=== PATIENT | female | born 1980 | race African-American/Black ===

== ENCOUNTER 2016-11-13 01:32 | Emergency (ER) | payer BC ==
[~2016-11-13] VITALS: Ht 165.1 cm; Wt 83.9 kg
[2016-11-13 02:21] VITALS: BP 137/77
[2016-11-13 02:30] LABS: BILIRUBIN,URINE NEGATIVE (NEG); GLUCOSE,URINE NEGATIVE (NEG); NITRITE,URINE NEGATIVE (NEG); PROTEIN,URINE NEGATIVE (NEG-TRACE); UROBILINOGEN,URINE 0.2 mg/dL (0.2 mg/dL)
[2016-11-13 02:34] LABS: BACTERIA,URINE MANY /HPF (0-FEW); RBC,URINE OCC /HPF (0-2); SQUAMOUS EPITHELIAL CELL,UR MANY /LPF
[2016-11-13] MEDS ORDERED: PHEN-318 PO (02:55)
[2016-11-13] MEDS ORDERED: NITR100C62 PO (02:55)
--- NOTE | 2016-11-13 02:55 | PHYS DOC ---
Past Medical History Past Medical History: Other Additional Past Medical Histor: GRAVES, LYNDA'S Past Surgical History: Tubal ligation, Other Additional Past Surgical Histo: radiation to thyroid Smoking: Cigarettes Alcohol Use: Rarely Drug Use: Marijuana Adult General Chief Complaint Chief Complaint: MULTIPLE COMPLAINTS HPI HPI Patient is a 36 year old female who presents with vaginal pain and pressure with urination. She feels like "something is falling out". Last menstrual period 2 weeks ago. Her last child was 15 years ago. She had noticed increasing difficulty with urination. No fever, no vomiting. Review of Systems Review of Systems Constitutional: Denies fever or chills Eyes: Denies change in visual acuity, redness, or eye pain HENT: Denies nasal congestion or sore throat Respiratory: Denies cough or shortness of breath Cardiovascular: No chest pain GI: Denies abdominal pain, nausea, vomiting, bloody stools or diarrhea : POS dysuria; no hematuria Musculoskeletal: Denies back pain or joint pain Integument: Denies rash or skin lesions Neurologic: chronic headache, focal weakness or sensory changes Allergies Allergies Allergies Coded Allergies Type Severity Reaction Last Updated Verified No Known Drug Allergies 04/23/13 No Physical Exam Physical Exam Constitutional: Well developed, well nourished, no acute distress, non-toxic appearance. HENT: Normocephalic, atraumatic, bilateral external ears normal, oropharynx moist, no oral exudates, nose normal. Eyes: PERRLA, EOMI, conjunctiva normal, no discharge. Neck: Normal range of motion, no tenderness, supple, no stridor. Cardiovascular:Heart rate regular rhythm, no murmur Lungs & Thorax: Bilateral breath sounds clear to auscultation Abdomen: Bowel sounds normal, soft, no tenderness, no masses, no pulsatile masses. Exam: Food Service Director present. No prolapse noted. Vaginal exam unremarkable. No external lesions noted. Skin: Warm, dry, no erythema, no rash. Back: No tenderness, no CVA tenderness. Extremities: No tenderness, no cyanosis, no clubbing, ROM intact, no edema. Neurologic: Alert and oriented X 3, normal motor function, normal sensory function, no focal deficits noted. Current Patient Data Vital Signs Vital Signs Date Time Temp Pulse Resp B/P (MAP) Pulse Ox O2 Delivery O2 Flow Rate FiO2 11/13/16 02:21 98.9 83 18 137/77 (97) 98 Room Air 98.9 Lab Values Laboratory Tests Test 11/13/16 01:28 11/13/16 02:10 POC Urine HCG, Qualitative Hcg negative (Negative) Urine Collection Type Unknown Urine Color Yellow Urine Clarity Cloudy Urine pH 6.0 Urine Specific [place] 1.025 Urine Protein Negative mg/dL (NEG-TRACE) Urine Glucose (UA) Negative mg/dL (NEG) Urine Ketones (Stick) Negative mg/dL (NEG) Urine Blood Small (NEG) Urine Nitrite Negative (NEG) Urine Bilirubin Negative (NEG) Urine Urobilinogen Dipstick 0.2 mg/dL (0.2 mg/dL) Urine Leukocyte Esterase Large (NEG) Urine RBC Occ /HPF (0-2) Urine WBC 11-20 /HPF (0-4) Urine Squamous Epithelial Cells Many /LPF Urine Bacteria Many /HPF (0-FEW) Urine Mucus Mod /LPF Course & Med Decision Making Course & Med Decision Making Evaluated patient. Urinalysis was sent. Urine test is negative. Her urine is positive and discussed with patient that she may be developing stress urinary incontinence and pelvic floor laxity. She will follow-up with the private physician for referral to [facility]. She was dosed here with Macrobid and Pyridium. I have spoken with the patient and/or caregivers. I have explained the patient' s condition, diagnosis and treatment plan based on the information available to me at this time. I have answered the patient's and/or caregiver's questions and addressed any concerns. The patient and/or caregivers have as good an understanding of the patient's diagnosis, condition and treatment plan as can be expected at this point. The patient's condition is stable and appropriate for discharge from the emergency department. The patient will pursue further outpatient evaluation with the primary care physician or other designated or consulting physician as outlined in the discharge instructions. The patient and/or caregivers are agreeable to this plan of care and follow-up instructions have been explained in detail. The patient and/or caregivers have received these instructions in written format and have expressed an understanding of the discharge instructions. The patient and/or caregivers are aware that any significant change in condition or worsening of symptoms should prompt an immediate return to this or the closest emergency department or a call to 911. [place] Disclaimer Dragon Disclaimer This electronic medical record was generated, in whole or in part, using a voice recognition dictation system. Departure Departure Impression: Primary Impression: Urinary tract infection Additional Impression: SOFIE (stress urinary incontinence, female) Disposition: HOME, SELF-CARE Condition: STABLE Referrals: GENEVIEVE JOE MD (PCP) Patient Instructions: Urinary Tract Infection Scripts Phenazopyridine Hcl (PYRIDIUM) 200 Mg Tablet 200 MG PO TID, #10 TAB Prov: JOURDAN BONILLA MD 11/13/16 Nitrofurantoin Monohyd/M-Cryst (MACROBID 100 MG CAPSULE) 100 Mg Capsule 1 CAP PO BID, #14 CAP Prov: JOURDAN BONILLA MD 11/13/16 Problem Qualifiers Primary Impression: Urinary tract infection Urinary tract infection type: acute cystitis Hematuria presence: without hematuria Qualified Codes: N30.00 - Acute cystitis without hematuria JOURDAN BONILLA MD Nov 13, 2016 02:55
[2016-11-13] MEDS ORDERED: NITROFURANTOIN MONOHYD/M-CRYST 100 MG CAPSULE. PO ONE ×2 (03:01→03:15)
[2016-11-13] MEDS ORDERED: PHENAZOPYRIDINE 200 MG TABLET. ONE (03:01)
[2016-11-13] MEDS ORDERED: PHENAZOPYRIDINE 200 MG TABLET. PO ONE (03:15)
== END 2016-11-13 03:10 | disposition home or self-care (01) ==
LOC: ER 02:11
DX: N30.00 Acute cystitis without hematuria (principal); N39.3 Stress incontinence (female) (male); Z98.51 Tubal ligation status; F17.210 Nicotine dependence, cigarettes, uncomplicated
CPT/HCPCS: 81001; 81025; 87086; 99284

== ENCOUNTER 2017-05-14 05:06 | Emergency (ER) | payer BC ==
[2017-05-14 05:34] LABS: URINE HCG POC HCG NEGATIVE (Negative)
[2017-05-14] MEDS: NAPROXEN 500 MG TABLET PO (06:46)
== END 2017-05-14 06:50 | disposition home or self-care (01) ==
LOC: ER 05:06
DX: M54.5 Low back pain (principal); Z98.51 Tubal ligation status; W01.0XXA Fall on same level from slipping, tripping and stumbling without subsequent striking against object, initial encounter; Y93.89 Activity, other specified; Y92.090 Kitchen in other non-institutional residence as the place of occurrence of the external cause; Y99.8 Other external cause status
CPT/HCPCS: 81025; 99283

== ENCOUNTER 2017-08-11 21:36 | Emergency (ER) | payer BC ==
[2017-08-11 22:44] LABS: ADD MAN DIFF? NO
[2017-08-11 22:47] LABS: BASO # 0.1 x10^3/uL (0.0-0.2); BASO % 1 % (0-3); EOS # 0.2 x10^3/uL (0.0-0.7); EOS % 2 % (0-3); HEMATOCRIT 36.1 % (36.0-47.0); HEMOGLOBIN 12.2 g/dL (12.0-15.5); LYMPH # 3.3 x10^3/uL (1.0-4.8); LYMPH % 42 % (24-48); MEAN CORPUSCULAR HEMOGLOBIN 31 pg (25-35); MEAN CORPUSCULAR HGB CONC 34 g/dL (31-37); MEAN CORPUSCULAR VOLUME 91 fL (79-100); MONO # 0.3 x10^3/uL (0.0-1.1); MONO % 4 % (0-9); NEUT # 4.1 x10^3uL (1.8-7.7); NEUT % 52 % (31-73); PLATELET COUNT 211 x10^3/uL (140-400); RED BLOOD COUNT 3.96 x10^6/uL (3.50-5.40); RED CELL DISTRIBUTION WIDTH 13.8 % (11.5-14.5); WHITE BLOOD COUNT 7.9 x10^3/uL (4.0-11.0)
[2017-08-11 22:54] LABS: BILIRUBIN,URINE NEGATIVE (NEG); CLARITY,URINE CLEAR; COLOR,URINE YELLOW; GLUCOSE,URINE NEGATIVE (NEG); NITRITE,URINE NEGATIVE (NEG); PH,URINE 7.5; PROTEIN,URINE NEGATIVE (NEG-TRACE)
[2017-08-11] MEDS: METOCLOPRAMIDE HCL 10 MG/2 ML VIAL. IV (22:54)
[2017-08-11] MEDS: diphenhydrAMINE 50 MG/ML VIAL IVP (22:55)
[2017-08-11] MEDS: MORPHINE SULFATE 4 MG/ML DISP.SYRIN. IV (22:55)
[2017-08-11] MEDS: IV NORMAL SALINE 1000ML BAG 1,000 ML IV (22:55)
[2017-08-11 23:04] LABS: ANION GAP 8 (6-14); BACTERIA,URINE MANY /HPF (0-FEW); BLOOD UREA NITROGEN 15 mg/dL (7-20); BUN/CREATININE RATIO 11 (6-20); CALCIUM 8.3 mg/dL (8.5-10.1); CARBON DIOXIDE 29 mmol/L (21-32); CHLORIDE 103 mmol/L (98-107); CREATININE 1.4 mg/dL (0.6-1.0); GFR 50.9; GLUCOSE 88 mg/dL (70-99); POTASSIUM 3.6 mmol/L (3.5-5.1); RBC,URINE 0 /HPF (0-2); SODIUM 140 mmol/L (136-145); SQUAMOUS EPITHELIAL CELL,UR MANY /LPF
[2017-08-11 23:10] LABS: ALBUMIN 3.3 g/dL (3.4-5.0); ALK PHOS 64 U/L (46-116); ALT (SGPT) 22 U/L (14-59); AST (SGOT) 19 U/L (15-37); TOTAL BILIRUBIN 0.2 mg/dL (0.2-1.0); TOTAL PROTEIN 6.6 g/dL (6.4-8.2)
[2017-08-11 23:16] LABS: NEG OBC UR NEG; POS OBC UR POS; U PREG PATIENT NEGATIVE (NEG)
[2017-08-11 23:58] LABS: SEDIMENTATION RATE 12 (0-25)
== END 2017-08-12 00:55 | disposition home or self-care (01) ==
LOC: ER 08-12 00:55
DX: R51 Headache (principal); H53.8 Other visual disturbances; E05.90 Thyrotoxicosis, unspecified without thyrotoxic crisis or storm
CPT/HCPCS: 36415; 70450; 80053; 81001; 81025; 85025; 85651; 96374; 96375; 99285-25; J1200; J2270; J2765; J7030

== ENCOUNTER 2018-04-22 00:50 | Emergency (ER) | payer BC ==
[~2018-04-22] VITALS: Ht 152.4 cm; Wt 81.6 kg
[~2018-04-22 00:50] MED LIST: CYCL10TA2 PO; NAPR-683 PO; NITR100C62 PO; PHEN-318 PO
[2018-04-22 01:03] VITALS: BP 129/72
[2018-04-22] MEDS ORDERED: MELO7.5T29 PO (01:37)
[2018-04-22] MEDS ORDERED: ORPH100T PO (01:37)
--- NOTE | 2018-04-22 01:37 | PHYS DOC ---
Past Medical History Past Medical History: Hypothyroid, Kidney Infection, Other Additional Past Medical Histor: GRAVES, LYNDA'S Past Surgical History: Tubal ligation, Other Additional Past Surgical Histo: radiation to thyroid, thyroidectomy Alcohol Use: Occasionally Drug Use: None Adult General Chief Complaint Chief Complaint: MECHANICAL FALL HPI HPI Patient is a 37 year old female who presents with neck and head pain after a slip and fall on the ice at approximately 3:00 on Sunday afternoon. Patient was wearing high heels while walking to one of her daughters singing performances and slipped falling backwards striking her head. No loss of consciousness. No loss of bowel or bladder control. No paresthesias. No nausea or vomiting. She reports increased pain with movement especially of her left arm and in the left side of her neck. She has taken no medicine for pain. She has a mild headache.[] Review of Systems Review of Systems Constitutional: Denies fever or chills [] Eyes: Denies change in visual acuity, redness, or eye pain [] HENT: Denies nasal congestion or sore throat [] Respiratory: Denies cough or shortness of breath [] Cardiovascular: No chest pain or palpitations[] GI: Denies abdominal pain, nausea, vomiting, bloody stools or diarrhea [] : Denies dysuria or hematuria [] Musculoskeletal: Denies back pain or joint pain [] Integument: Denies rash or skin lesions [] Neurologic: Denies focal weakness or sensory changes [] Endocrine: Denies polyuria or polydipsia [] All other systems were reviewed and found to be within normal limits, except as documented in this note. Allergies Allergies Allergies Coded Allergies Type Severity Reaction Last Updated Verified No Known Drug Allergies 04/23/13 No Physical Exam Physical Exam Constitutional: Well developed, well nourished, no acute distress, non-toxic appearance. [] HENT: Normocephalic, atraumatic, palpation of the skull does not reveal any significant hematoma, no step-off, no crepitus. Bilateral external ears normal, TMs are clear, no blood no fluid, oropharynx moist, no oral exudates, nose normal. [] Eyes: PERRLA, EOMI, conjunctiva normal, no discharge. [] Neck: Normal range of motion, no midline tenderness, tenderness in the paraspinal musculature on the left side, full active range of motion, supple, no stridor. [] Cardiovascular:Heart rate regular rhythm, no murmur [] Lungs & Thorax: Bilateral breath sounds clear to auscultation [] Abdomen: Bowel sounds normal, soft, no tenderness, no masses, no pulsatile masses. [] Skin: Warm, dry, no erythema, no rash. [] Back: No tenderness, no CVA tenderness. [] Extremities: No tenderness, no cyanosis, no clubbing, ROM intact, no edema. Full active range of motion of bilateral shoulders, normal rapid repetitive and alternating movements, patient is distal neurovascularly intact.[] Neurologic: Alert and oriented X 3, normal motor function, normal sensory function, no focal deficits noted. [] Psychologic: Affect normal, judgement normal, mood normal. [] Current Patient Data Vital Signs Vital Signs Date Time Temp Pulse Resp B/P (MAP) Pulse Ox O2 Delivery O2 Flow Rate FiO2 04/22/18 01:03 98.1 87 20 129/72 (91) 99 Room Air 98.1 EKG EKG [] Radiology/Procedures Radiology/Procedures [] Course & Med Decision Making Course & Med Decision Making Pertinent Labs and Imaging studies reviewed. (See chart for details) Medical decision making: Patient does not have any significant bony tenderness to palpation of the cervical or thoracic spine. No step off of the skull, nor crepitus of the skull. Patient does not meet any criteria for needing a head CT at this time such as a prolonged loss of consciousness, unequal pupils, persistent nausea or vomiting. Believe this to be more of a closed head injury and neck strain mechanism and will treat accordingly. There is no evidence of any neurologic or vascular compromise.[] Dragon Disclaimer Dragon Disclaimer This electronic medical record was generated, in whole or in part, using a voice recognition dictation system. Departure Departure Impression: Primary Impression: Minor closed head injury Additional Impression: Cervical strain, acute Disposition: 01 HOME, SELF-CARE Condition: IMPROVED Referrals: GENEVIEVE JOE MD (PCP) Follow-up in 2 days Patient Instructions: Cervical Strain and Sprain with Rehab-SportsMed, Head Injury, Adult Additional Instructions: Follow-up with your regular doctor in 2 days. Take the medication as prescribed. Return to the ER if worsening discomfort or any other concerns. Scripts Orphenadrine Citrate (ORPHENADRINE CITRATE) 100 Mg Tablet.er 100 MG PO BID, #20 TAB.SR Prov: MANDI JACOB DO 04/22/18 Meloxicam (MELOXICAM) 7.5 Mg Tablet 7.5 MG PO DAILY, #20 TAB Prov: MANDI JACOB DO 04/22/18 Problem Qualifiers Additional Impression: Cervical strain, acute Encounter type: initial encounter Qualified Codes: S16.1XXA - Strain of muscle, fascia and tendon at neck level, initial encounter MANDI JACOB DO Apr 22, 2018 01:37
== END 2018-04-22 01:37 | disposition home or self-care (01) ==
LOC: ER 00:50
DX: S16.1XXA Strain of muscle, fascia and tendon at neck level, initial encounter (principal); S09.8XXA Other specified injuries of head, initial encounter; E89.0 Postprocedural hypothyroidism; Z98.51 Tubal ligation status; W00.0XXA Fall on same level due to ice and snow, initial encounter; Y93.01 Activity, walking, marching and hiking; Y92.89 Other specified places as the place of occurrence of the external cause; Y99.8 Other external cause status
CPT/HCPCS: 99283

== ENCOUNTER → 2018-05-02 | Outpatient (CLI) | payer BC ==
[2018-04-22 01:03] VITALS: BP 129/72
[~2018-05-02] MED LIST changes: +MELO7.5T29 PO; +ORPH100T PO
--- NOTE | 2018-05-02 12:30 | RAD ---
PQRS Compliance statement: One or more of the following individualized dose reduction techniques were utilized for this examination: 1. Automated exposure control. 2. Adjustment of the mA and/or kV according to patient size. 3. Use of iterative reconstruction technique. Indication:HEAD INJURY FALL 2 WEEKS AGO HIT BACK OF HEAD PREV SENT TECHNIQUE: CT head without IV contrast COMPARISON:08/11/2017 FINDINGS: No pathologic extra-axial or intra-axial fluid collection. The ventricles and basal cisterns are within normal limits. No acute intracranial bleed. No focal loss of owen-white differentiation. Visualized orbits within normal limits. No large scalp hematoma. No acute calvarial fracture. Visualized paranasal sinuses and mastoid air cells are clear. IMPRESSION: No acute intracranial process. Electronically signed by: Remy Gray DO (05/02/2018 12:27 PM) [id number]
== END | disposition home or self-care (01) ==
LOC: CT 11:03
PROVIDERS: ATTEND Family Medicine
DX: S06.0X9A Concussion with loss of consciousness of unspecified duration, initial encounter (principal); W00.9XXA Unspecified fall due to ice and snow, initial encounter; Y93.89 Activity, other specified; Y92.89 Other specified places as the place of occurrence of the external cause; Y99.8 Other external cause status
CPT/HCPCS: 70450

== ENCOUNTER 2018-07-20 06:59 | Emergency (ER) | payer BC ==
[~2018-07-20] VITALS: Ht 152.4 cm; Wt 83.9 kg
[2018-07-20] MEDS ORDERED: KETOROLAC 30 MG/ML VIAL. IV ONE (08:00)
[2018-07-20] MEDS ORDERED: methylPREDNISolone SOD SUCC PF 125 MG/2 ML VIAL. IV ONE (08:00)
[2018-07-20] MEDS ORDERED: IV NORMAL SALINE 1000ML BAG 1,000 ML IV SCH (08:00)
[2018-07-20] MEDS ORDERED: ONDANSETRON PF 4 MG/2 ML VIAL. IV ONE (08:00)
[2018-07-20] MEDS ORDERED: IPRATRPIUM/ALBUTEROL 0.5/2.5MG 3 ML NEBU. NEB ONE (08:00)
[2018-07-20 08:28] LABS: BASO % 0 % (0-3); EOS # 0.3 x10^3/uL (0.0-0.7); EOS % 3 % (0-3); HEMATOCRIT 38.8 % (36.0-47.0); HEMOGLOBIN 12.7 g/dL (12.0-15.5); LYMPH # 2.1 x10^3/uL (1.0-4.8); LYMPH % 23 % (24-48); MEAN CORPUSCULAR HEMOGLOBIN 29 pg (25-35); MEAN CORPUSCULAR HGB CONC 33 g/dL (31-37); MEAN CORPUSCULAR VOLUME 88 fL (79-100); MONO # 0.4 x10^3/uL (0.0-1.1); MONO % 5 % (0-9); NEUT # 6.2 x10^3uL (1.8-7.7); NEUT % 69 % (31-73); PLATELET COUNT 235 x10^3/uL (140-400); RED BLOOD COUNT 4.43 x10^6/uL (3.50-5.40); RED CELL DISTRIBUTION WIDTH 13.8 % (11.5-14.5); WHITE BLOOD COUNT 9.1 x10^3/uL (4.0-11.0)
[2018-07-20 08:36] LABS: CALCIUM 9.1 mg/dL (8.5-10.1); GFR 74.7; POTASSIUM 3.2 mmol/L (3.5-5.1)
[2018-07-20 08:41] LABS: ALBUMIN 3.4 g/dL (3.4-5.0); ALBUMIN/GLOBULIN RATIO 0.8 (1.0-1.7); TOTAL BILIRUBIN 0.2 mg/dL (0.2-1.0); TOTAL PROTEIN 7.5 g/dL (6.4-8.2)
--- NOTE | 2018-07-20 08:46 | RAD ---
PA and lateral chest radiographs 07/20/2018 Clinical History: Shortness of breath, cough and congestion for 3 days.. PA and lateral digital radiographs of the chest were obtained. No previous studies are available for comparison. The cardiac and mediastinal silhouettes are within normal limits in size and configuration. No pulmonary infiltrate is seen. No pleural effusion or pneumothorax is noted. The osseous structures are grossly intact. Impression: No radiographic evidence of active cardiopulmonary disease. Electronically signed by: Jakob Madison MD (07/20/2018 8:43 AM) [facility]
[2018-07-20] MEDS ORDERED: ALBU2.5V8 INH (10:01)
[2018-07-20] MEDS ORDERED: HYDR115S2 PO (10:01)
[2018-07-20] MEDS ORDERED: METH4TAB2 PO (10:01)
--- NOTE | 2018-07-20 10:02 | PHYS DOC ---
Past Medical History Past Medical History: Hypothyroid, Kidney Infection, Other Additional Past Medical Histor: GRAVES, LYNDA'S Past Surgical History: Tubal ligation, Other Additional Past Surgical Histo: radiation to thyroid, thyroidectomy Alcohol Use: Occasionally Drug Use: None Adult General Chief Complaint Chief Complaint: Congestion HPI HPI Patient is a 37 year old female who presents with thinning of cough and congestion. Patient complaining of episodes of productive cough with yellow sputum and nasal congestion and shortness of breath for the last 3 days and states she had not able to breathe because of plugging her throat. Patient states she was seen at another hospital 2 days ago with nausea and vomiting that resolved but her cough and congestion is not getting better. Review of Systems Review of Systems Constitutional: Reports subjective fever and chills Eyes: Denies change in visual acuity, redness, or eye pain [] HENT: Reports nasal congestion and sore throat Respiratory: Reports cough and shortness of breath is Cardiovascular: No additional information not addressed in HPI [] GI: Denies abdominal pain, nausea, vomiting, bloody stools or diarrhea [] : Denies dysuria or hematuria [] Musculoskeletal: Denies back pain or joint pain [] Integument: Denies rash or skin lesions [] Neurologic: Denies headache, focal weakness or sensory changes [] Endocrine: Denies polyuria or polydipsia [] All other systems were reviewed and found to be within normal limits, except as documented in this note. Current Medications Current Medications Current Medications Medications (Trade) Dose Ordered Sig/Sue Start Time Stop Time Status Last Admin Dose Admin Albuterol/ Ipratropium (Duoneb) 3 ml 1X ONCE 07/20/18 08:00 07/20/18 08:01 DC 07/20/18 07:46 3 ML Ketorolac Tromethamine (Toradol 30mg Vial) 30 mg 1X ONCE 07/20/18 08:00 07/20/18 08:01 DC 07/20/18 08:14 30 MG Methylprednisolone Sodium Succinate (SOLU-Medrol 125MG VIAL) 125 mg 1X ONCE 07/20/18 08:00 07/20/18 08:01 DC 07/20/18 08:11 125 MG Ondansetron HCl (Zofran) 4 mg 1X ONCE 07/20/18 08:00 07/20/18 08:01 DC 07/20/18 08:14 4 MG Potassium Chloride (Klor-Con) 40 meq 1X ONCE 07/20/18 10:30 07/20/18 10:30 DC 07/20/18 10:20 40 MEQ Sodium Chloride 1,000 ml @ 1,000 mls/hr Q1H 07/20/18 08:00 07/20/18 08:59 DC 07/20/18 08:10 1,000 MLS/HR Allergies Allergies Allergies Coded Allergies Type Severity Reaction Last Updated Verified No Known Drug Allergies 04/23/13 No Physical Exam Physical Exam Constitutional: Well developed, well nourished, mild distress, non-toxic appearance. [] HENT: Normocephalic, atraumatic, bilateral external ears normal, oropharynx moist, no oral exudates, nose normal. [] Eyes: PERRLA, EOMI, conjunctiva normal, no discharge. [] Neck: Normal range of motion, no tenderness, supple, no stridor. [] Cardiovascular:Heart rate regular rhythm, no murmur [] Lungs & Thorax: Bilateral breath sounds clear to auscultation [] Abdomen: Bowel sounds normal, soft, no tenderness, no masses, no pulsatile masses. [] Skin: Warm, dry, no erythema, no rash. [] Back: No tenderness, no CVA tenderness. [] Extremities: No tenderness, no cyanosis, no clubbing, ROM intact, no edema. [] Neurologic: Alert and oriented X 3, normal motor function, normal sensory function, no focal deficits noted. [] Psychologic: Affect anxious, judgement normal, mood normal. [] Current Patient Data Vital Signs Vital Signs Date Time Temp Pulse Resp B/P (MAP) Pulse Ox O2 Delivery O2 Flow Rate FiO2 07/20/18 10:21 66 112/55 (74) 99 Room Air 07/20/18 07:25 98.5 20 98.5 Lab Values Laboratory Tests Test 07/20/18 08:00 White Blood Count 9.1 x10^3/uL (4.0-11.0) Red Blood Count 4.43 x10^6/uL (3.50-5.40) Hemoglobin 12.7 g/dL (12.0-15.5) Hematocrit 38.8 % (36.0-47.0) Mean Corpuscular Volume 88 fL (79-100) Mean Corpuscular Hemoglobin 29 pg (25-35) Mean Corpuscular Hemoglobin Concent 33 g/dL (31-37) Red Cell Distribution Width 13.8 % (11.5-14.5) Platelet Count 235 x10^3/uL (140-400) Neutrophils (%) (Auto) 69 % (31-73) Lymphocytes (%) (Auto) 23 % (24-48) L Monocytes (%) (Auto) 5 % (0-9) Eosinophils (%) (Auto) 3 % (0-3) Basophils (%) (Auto) 0 % (0-3) Neutrophils # (Auto) 6.2 x10^3uL (1.8-7.7) Lymphocytes # (Auto) 2.1 x10^3/uL (1.0-4.8) Monocytes # (Auto) 0.4 x10^3/uL (0.0-1.1) Eosinophils # (Auto) 0.3 x10^3/uL (0.0-0.7) Basophils # (Auto) 0.0 x10^3/uL (0.0-0.2) Sodium Level 140 mmol/L (136-145) Potassium Level 3.2 mmol/L (3.5-5.1) L Chloride Level 103 mmol/L (98-107) Carbon Dioxide Level 25 mmol/L (21-32) Anion Gap 12 (6-14) Blood Urea Nitrogen 10 mg/dL (7-20) Creatinine 1.0 mg/dL (0.6-1.0) Estimated GFR (Cockcroft-Gault) 74.7 BUN/Creatinine Ratio 10 (6-20) Glucose Level 122 mg/dL (70-99) H Lactic Acid Level 1.3 mmol/L (0.4-2.0) Calcium Level 9.1 mg/dL (8.5-10.1) Total Bilirubin 0.2 mg/dL (0.2-1.0) Aspartate Amino Transferase (AST) 14 U/L (15-37) L Alanine Aminotransferase (ALT) 18 U/L (14-59) Alkaline Phosphatase 62 U/L (46-116) Total Protein 7.5 g/dL (6.4-8.2) Albumin 3.4 g/dL (3.4-5.0) Albumin/Globulin Ratio 0.8 (1.0-1.7) L Laboratory Tests 07/20/18 08:00 Laboratory Tests 07/20/18 08:00 EKG EKG [] Radiology/Procedures Radiology/Procedures [facility] [address] [place] [address] IMAGING REPORT Signed PATIENT: BABAR CAVAZOS ACCOUNT: [id number] : 1980 LOCATION: ER AGE: 37 SEX: F EXAM STATUS: REG ER ORD. PHYSICIAN: ADA SOSA MD REASON: SOB, COUGH, CONGESTION X 3 DAYS PROCEDURE: CHEST PA & LATERAL PA and lateral chest radiographs 07/20/2018 Clinical History: Shortness of breath, cough and congestion for 3 days.. PA and lateral digital radiographs of the chest were obtained. No previous studies are available for comparison. The cardiac and mediastinal silhouettes are within normal limits in size and configuration. No pulmonary infiltrate is seen. No pleural effusion or pneumothorax is noted. The osseous structures are grossly intact. Impression: No radiographic evidence of active cardiopulmonary disease. Electronically signed by: Jakob Madison MD (07/20/2018 8:43 AM) [facility] DICTATED and SIGNED BY: JAKOB MADISON MD DATE: 07/20/18842 Course & Med Decision Making Course & Med Decision Making Pertinent Labs and Imaging studies reviewed. (See chart for details) Evaluation of patient in ER showed 37-year-old male patient with nasal congestion and cough and congestion for 3 days. Patient refuses flu swab and fel t better after treatment in ER. Dragon Disclaimer Dragon Disclaimer This electronic medical record was generated, in whole or in part, using a voice recognition dictation system. Departure Departure Impression: Primary Impression: URI (upper respiratory infection) Additional Impressions: Hypokalemia Tobacco abuse Tobacco abuse counseling Disposition: HOME, SELF-CARE (at 1000) Condition: IMPROVED Referrals: GENEVIEVE JOE MD (PCP) Patient Instructions: Hypokalemia, Smoking Cessation, Tips For Success, Upper Respiratory Infection, Adult Additional Instructions: Drink plenty of liquids Follow-up with your primary care physician in 3-5 days Return to ER if not getting better Scripts Hydrocodone/Chlorphen P-Stirex (Tussionex Pennkinetic Susp) 115 Ml Serena.er.12h 5 ML PO BID for cough and congestion, #60 ML Prov: ADA SOSA MD 07/20/18 Albuterol Sulfate (PROAIR HFA INHALER) 8.5 Gm Hfa.aer.ad 2 PUFF INH PRN Q6HRS PRN for SHORTNESS OF BREATH, #1 INHALER 0 Refills Prov: ADA SOSA MD 07/20/18 Methylprednisolone (MEDROL) 4 Mg Tab.ds.pk 1 PKG PO UD for inflammation, #1 PKG Prov: ADA SOSA MD 07/20/18 Problem Qualifiers Primary Impression: URI (upper respiratory infection) URI type: unspecified URI Qualified Codes: J06.9 - Acute upper respiratory infection, unspecified ADA SOSA MD July 20, 2018 10:01
[2018-07-20 10:21] VITALS: BP 112/55
[2018-07-20] MEDS ORDERED: POTASSIUM CHLORIDE 20 MEQ TABLET.ER. PO ONE (10:30)
== END 2018-07-20 10:27 | disposition home or self-care (01) ==
LOC: ER 06:59
DX: J06.9 Acute upper respiratory infection, unspecified (principal); Z98.51 Tubal ligation status; E89.0 Postprocedural hypothyroidism; E87.6 Hypokalemia; Z71.6 Tobacco abuse counseling
CPT/HCPCS: 36415; 71046; 80053; 83605; 85025; 94640; 96374; 96375; 99285; J1885; J2405; J2930; J7030; J7620

== ENCOUNTER 2018-08-07 21:01 | Emergency (ER) | payer BC ==
[~2018-08-07] VITALS: Ht 154.9 cm; Wt 83.0 kg
[~2018-08-07 21:01] MED LIST changes: +ALBU2.5V8 INH; +HYDR115S2 PO; +METH4TAB2 PO
[2018-08-07 21:37] VITALS: BP 132/61
[2018-08-07 21:57] LABS: BASO % 1 % (0-3); EOS # 0.2 x10^3/uL (0.0-0.7); EOS % 2 % (0-3); HEMATOCRIT 40.8 % (36.0-47.0); HEMOGLOBIN 13.4 g/dL (12.0-15.5); LYMPH # 3.6 x10^3/uL (1.0-4.8); LYMPH % 42 % (24-48); MEAN CORPUSCULAR HEMOGLOBIN 29 pg (25-35); MEAN CORPUSCULAR HGB CONC 33 g/dL (31-37); MEAN CORPUSCULAR VOLUME 87 fL (79-100); MONO # 0.3 x10^3/uL (0.0-1.1); MONO % 4 % (0-9); NEUT # 4.4 x10^3uL (1.8-7.7); NEUT % 51 % (31-73); PLATELET COUNT 216 x10^3/uL (140-400); RED BLOOD COUNT 4.67 x10^6/uL (3.50-5.40); RED CELL DISTRIBUTION WIDTH 14.1 % (11.5-14.5); WHITE BLOOD COUNT 8.5 x10^3/uL (4.0-11.0)
[2018-08-07 21:58] LABS: BILIRUBIN,URINE NEGATIVE (NEG); CLARITY,URINE CLOUDY; COLOR,URINE YELLOW; NITRITE,URINE NEGATIVE (NEG); PROTEIN,URINE NEGATIVE (NEG-TRACE)
[2018-08-07 22:05] LABS: SQUAMOUS EPITHELIAL CELL,UR MANY /LPF
[2018-08-07 22:06] LABS: PROTHROMBIN TIME PATIENT 11.8 SEC (11.7-14.0)
[2018-08-07 22:06] LABS: BACTERIA,URINE MODERATE /HPF (0-FEW)
[2018-08-07 22:07] LABS: RBC,URINE RARE /HPF (0-2)
[2018-08-07 22:10] LABS: GFR 74.7; POTASSIUM 3.5 mmol/L (3.5-5.1)
[2018-08-07 22:15] LABS: ALBUMIN 3.4 g/dL (3.4-5.0); ALBUMIN/GLOBULIN RATIO 0.8 (1.0-1.7); MAGNESIUM 1.7 mg/dL (1.8-2.4); TOTAL BILIRUBIN 0.1 mg/dL (0.2-1.0); TOTAL PROTEIN 7.5 g/dL (6.4-8.2)
[2018-08-07] MEDS ORDERED: SULF1TAB24 PO (23:10)
--- NOTE | 2018-08-07 23:12 | PHYS DOC ---
Past Medical History Past Medical History: Hypothyroid, Kidney Infection, Other Additional Past Medical Histor: GRAVES, LYNDA'S Past Surgical History: Tubal ligation, Other Additional Past Surgical Histo: radiation to thyroid, thyroidectomy Alcohol Use: Occasionally Drug Use: None Adult General Chief Complaint Chief Complaint: FACE PROBLEM HPI HPI Patient is a 37 year old female who presents with burning of facial swelling. Patient complaining of facial swelling since this morning and intermittent episodes of left upper and right lower extremity edema for several days. Patient states she has of hypothyroidism and had a thyroid test about 2 months ago and had increased dose of Synthroid. Patient complaining of generalized weakness and not having energy. Patient denies chest pain and shortness of breath or focal neuro deficit, fever and chills. Review of Systems Review of Systems Constitutional: Denies fever or chills [] Eyes: Denies change in visual acuity, redness, or eye pain [] HENT: Denies nasal congestion or sore throat [] Respiratory: Denies cough or shortness of breath [] Cardiovascular: No additional information not addressed in HPI [] GI: Denies abdominal pain, nausea, vomiting, bloody stools or diarrhea [] : Denies dysuria or hematuria [] Musculoskeletal: Denies back pain or joint pain [] Integument: Denies rash or skin lesions [] Neurologic: Denies headache, focal weakness or sensory changes [] Endocrine: Denies polyuria or polydipsia [] All other systems were reviewed and found to be within normal limits, except as documented in this note. Allergies Allergies Allergies Coded Allergies Type Severity Reaction Last Updated Verified No Known Drug Allergies 04/23/13 No Physical Exam Physical Exam Constitutional: Well developed, well nourished, mild distress, non-toxic appearance. [] HENT: Normocephalic, atraumatic, oropharynx moist. Eyes: PERRLA, EOMI, conjunctiva normal, no discharge. [] Neck: Normal range of motion, no tenderness, supple, no stridor. [] Cardiovascular:Heart rate regular rhythm, no murmur [] Lungs & Thorax: Bilateral breath sounds clear to auscultation [] Abdomen: Bowel sounds normal, soft, no tenderness, no masses, no pulsatile masses. [] Skin: Warm, dry, no erythema, no rash. [] Back: No tenderness, no CVA tenderness. [] Extremities: No tenderness, no cyanosis, no clubbing, ROM intact, no edema. [] Neurologic: Alert and oriented X 3, normal motor function, normal sensory function, no focal deficits noted. [] Psychologic: Affect normal, judgement normal, mood normal. [] Current Patient Data Vital Signs Vital Signs Date Time Temp Pulse Resp B/P (MAP) Pulse Ox O2 Delivery O2 Flow Rate FiO2 08/07/18 21:37 98.6 78 17 132/61 (84) 99 Room Air 98.6 Lab Values Laboratory Tests Test 08/07/18 21:15 08/07/18 21:25 Urine Collection Type Unknown Urine Color Yellow Urine Clarity Cloudy Urine pH 6.0 Urine Specific Moore 1.025 Urine Protein Negative mg/dL (NEG-TRACE) Urine Glucose (UA) Negative mg/dL (NEG) Urine Ketones (Stick) Negative mg/dL (NEG) Urine Blood Negative (NEG) Urine Nitrite Negative (NEG) Urine Bilirubin Negative (NEG) Urine Urobilinogen Dipstick 1.0 mg/dL (0.2 mg/dL) Urine Leukocyte Esterase Moderate (NEG) Urine RBC Rare /HPF (0-2) Urine WBC 5-10 /HPF (0-4) Urine Squamous Epithelial Cells Many /LPF Urine Bacteria Moderate /HPF (0-FEW) Urine Mucus Mod /LPF White Blood Count 8.5 x10^3/uL (4.0-11.0) Red Blood Count 4.67 x10^6/uL (3.50-5.40) Hemoglobin 13.4 g/dL (12.0-15.5) Hematocrit 40.8 % (36.0-47.0) Mean Corpuscular Volume 87 fL (79-100) Mean Corpuscular Hemoglobin 29 pg (25-35) Mean Corpuscular Hemoglobin Concent 33 g/dL (31-37) Red Cell Distribution Width 14.1 % (11.5-14.5) Platelet Count 216 x10^3/uL (140-400) Neutrophils (%) (Auto) 51 % (31-73) Lymphocytes (%) (Auto) 42 % (24-48) Monocytes (%) (Auto) 4 % (0-9) Eosinophils (%) (Auto) 2 % (0-3) Basophils (%) (Auto) 1 % (0-3) Neutrophils # (Auto) 4.4 x10^3uL (1.8-7.7) Lymphocytes # (Auto) 3.6 x10^3/uL (1.0-4.8) Monocytes # (Auto) 0.3 x10^3/uL (0.0-1.1) Eosinophils # (Auto) 0.2 x10^3/uL (0.0-0.7) Basophils # (Auto) 0.0 x10^3/uL (0.0-0.2) Prothrombin Time 11.8 SEC (11.7-14.0) Prothrombin Time INR 0.9 (0.8-1.1) Sodium Level 139 mmol/L (136-145) Potassium Level 3.5 mmol/L (3.5-5.1) Chloride Level 104 mmol/L (98-107) Carbon Dioxide Level 22 mmol/L (21-32) Anion Gap 13 (6-14) Blood Urea Nitrogen 17 mg/dL (7-20) Creatinine 1.0 mg/dL (0.6-1.0) Estimated GFR (Cockcroft-Gault) 74.7 BUN/Creatinine Ratio 17 (6-20) Glucose Level 124 mg/dL (70-99) H Calcium Level 9.0 mg/dL (8.5-10.1) Magnesium Level 1.7 mg/dL (1.8-2.4) L Total Bilirubin 0.1 mg/dL (0.2-1.0) L Aspartate Amino Transferase (AST) 18 U/L (15-37) Alanine Aminotransferase (ALT) 20 U/L (14-59) Alkaline Phosphatase 74 U/L (46-116) Creatine Kinase 157 U/L (26-192) Troponin I Quantitative < 0.017 ng/mL (0.000-0.055) SW-Aij-C-Type Natriuretic Peptide 6 pg/mL (0-124) Total Protein 7.5 g/dL (6.4-8.2) Albumin 3.4 g/dL (3.4-5.0) Albumin/Globulin Ratio 0.8 (1.0-1.7) L Lipase 300 U/L (73-393) Thyroid Stimulating Hormone (TSH) 111.101 uIU/mL (0.358-3.74) H Laboratory Tests 08/07/18 21:25 Laboratory Tests 08/07/18 21:25 EKG EKG EKG interpreted by me. EKG at 2241 showed sinus bradycardia at rate of 58, PACs, left hernandez axis, nonspecific T-wave abnormalities, no acute ST and T-wave abnormalities. Radiology/Procedures Radiology/Procedures Chest x-ray interpreted by me and did not show acute finding. Course & Med Decision Making Course & Med Decision Making Pertinent Labs and Imaging studies reviewed. (See chart for details) Evaluation of patient in ER showed 37-year-old female patient with complaining of erythema face and extremities. Patient has history of hypothyroidism and taking 300 g of Synthroid. Patient had TSH of 111 and was advised to follow-up with her primary care physician tomorrow for increased the dose of Synthroid and referral to undercoat sprayer. Dragon Disclaimer Dragon Disclaimer This electronic medical record was generated, in whole or in part, using a voice recognition dictation system. Departure Departure Impression: Primary Impression: Severe hypothyroidism Additional Impressions: UTI (urinary tract infection) Hypomagnesemia Disposition: HOME, SELF-CARE (at 2308) Condition: STABLE Referrals: GENEVIEVE JOE MD (PCP) Patient Instructions: Thyroid Cyst, Thyroid-Stimulating Hormone Additional Instructions: Follow-up with your primary care physician tomorrow for increasing the dose of Synthroid and referral to undercoat sprayer Return to ER if not getting better Scripts Sulfamethoxazole/Trimethoprim (BACTRIM DS TABLET) 1 Each Tablet 1 TAB PO BID for infection, #14 TAB Prov: ADA SOSA MD 08/07/18 Problem Qualifiers Additional Impressions: UTI (urinary tract infection) Urinary tract infection type: site unspecified Hematuria presence: without hematuria Qualified Codes: N39.0 - Urinary tract infection, site not specified ADA SOSA MD August 07, 2018 23:11
--- NOTE | 2018-08-08 01:06 | RAD ---
PA and lateral chest radiographs 08/07/2018 Clinical History: Generalized weakness. PA and lateral digital radiographs of the chest were obtained. Comparison study is dated 07/20/2018. The cardiac and mediastinal silhouettes are within normal limits in size and configuration. No pulmonary infiltrate is seen. No pleural effusion or pneumothorax is noted. The osseous structures are grossly intact. Impression: No radiographic evidence of active cardiopulmonary disease. Electronically signed by: Jakob Madison MD (08/08/2018 1:04 AM) [facility]
--- NOTE | 2018-08-08 07:02 | EKG ---
[facility] [address] [place] [address] Test Date: 2018-08-07 Test Time: 22:41:06 Pat Name: BABAR CAVAZOS Department: Room: Gender: F [employer]ing [employer]: : [id number] Requested By: ADA SOSA Order Number: [id number] Reading MD: Measurements Intervals [place] Rate: 58 P: 55 GA: 170 QRS: -10 QRSD: 84 T: 21 QT: 440 QTc: 435 Interpretive Statements SINUS RHYTHM ATRIAL PREMATURE COMPLEX(ES) LEFTWARD AXIS NON SPECIFIC T ABNORMALITY BORDERLINE ECG No previous ECG available for comparison
== END 2018-08-07 23:30 | disposition home or self-care (01) ==
LOC: ER 21:01
DX: E03.9 Hypothyroidism, unspecified (principal); N39.0 Urinary tract infection, site not specified; E83.42 Hypomagnesemia; R22.0 Localized swelling, mass and lump, head; R53.1 Weakness; Z98.51 Tubal ligation status
CPT/HCPCS: 36415; 71046; 80053; 81001; 82550; 83690; 83735; 83880; 84443; 84484; 85025; 85610; 87086; 93005; 99285-25

== ENCOUNTER → 2019-03-13 | Outpatient (CLI) | payer BC ==
[~2019-03-13] MED LIST changes: +SULF1TAB24 PO
--- NOTE | 2019-03-13 16:48 | KCIC ---
EXAM: Lumbar spine, 3 views. HISTORY: Pain. COMPARISON: None. FINDINGS: 3 views of the lumbar spine are obtained. There is slight retrolisthesis of L4 and L5. There is no fracture. There is facet arthropathy at the lower lumbar levels. There is slight sacralization of the left L5 transverse process, a normal variant. There are fallopian tube closure devices overlying the pelvis. IMPRESSION: No acute osseous finding. Electronically signed by: Lynnette Mcmahan MD (03/13/2019 4:45 PM) [place] [id number]
== END | disposition home or self-care (01) ==
LOC: KCIC 15:48
PROVIDERS: ATTEND Nurse Practitioner Family
DX: M12.88 Other specific arthropathies, not elsewhere classified, other specified site (principal)
CPT/HCPCS: 72100